=== PATIENT | female | born 1990 | race Caucasian/White ===

== ENCOUNTER 2017-08-13 14:40 | Outpatient (CLI) | payer MEDICAID, SELFPAY ==
[2017-08-13 14:53] VITALS: BMI 41.1
--- NOTE | 2017-08-14 08:38 | OB.TRI.NOTE ---
History of Present Illness Date of Service: 08/13/17 Was patient seen by the physician?: Yes Reason For Visit: NST Date of Service: 08/13/17 Final MARILY: 10/14/17 Final MARILY Source: US <20 weeks Gestational age: 31 Weeks and 2 Days Home Medications Medication Instructions Recorded RX: Ferrous Gluconate 325 mg PO BIDCM 08/13/17 RX: Vits [Prenatabs FA 1 tablet PO DAILY 08/13/17 ] Allergies succinylcholine Allergy (Verified 08/13/17 14:54) Unknown Physical Exam General: Alert, Oriented x3, Cooperative, No apparent distress Cardiovascular: Regular rate, Regular Rhythm Lungs: Clear to auscultation, Normal air movement Abdomen: Soft, Non Tender, Non-Distended, Gravid, - - LGA Twins Extremities:: No edema Estimated gestational size: Large for gestational age - Twin Presentation: Unable to assess NST - FHR Rate Baby A Baseline: 140s Variability:: Moderate Accelerations:: 15 x 15 Decelerations:: None NST Reactive:: Yes, Appropriate for gestational age FHR Category:: Category I Uterine Activity:: rare - FHR Rate Baby B Baseline: 130s Variability:: Moderate Accelerations:: 15 x 15 Decelerations:: None NST Reactive:: Yes FHR Category:: Category I Uterine Activity:: rare Impression/Plan Reassuring Cat 1 FHR tracings for twins.
== END 2017-08-13 15:30 | disposition home or self-care (01) ==
LOC: WPOUT 14:51 → WP 14:52
PROVIDERS: Visit Provider Obstetrics & Gynecology
DX: O30.003 Twin pregnancy, unspecified number of placenta and unspecified number of amniotic sacs, third trimester (principal); Z3A.31 31 weeks gestation of pregnancy
CPT/HCPCS: 59025; 59050; 99218; G0378

== ENCOUNTER 2017-08-17 12:50 | Outpatient (CLI) | payer MEDICAID, SELFPAY ==
[2017-08-17 13:34] VITALS: BMI 40.4
--- NOTE | 2017-08-17 19:16 | OB.TRI.NOTE ---
History of Present Illness Date of Service: 08/17/17 Was patient seen by the physician?: No Reason For Visit: NST Date of Service: 08/17/17 Final MARILY: 10/14/17 Final MARILY Source: US <20 weeks Gestational age: 31 Weeks and 5 Days Home Medications Medication Instructions Recorded Ferrous Gluconate 325 mg PO BIDCM 08/13/17 Vits [Prenatabs FA ] 1 tablet PO DAILY 08/13/17 Allergies succinylcholine Allergy (Verified 08/13/17 14:54) Unknown NST - FHR Rate Baby A Baseline: 140 Variability:: Moderate Accelerations:: 15 x 15 Decelerations:: None NST Reactive:: Yes FHR Category:: Category I Uterine Activity:: 0/10 - FHR Rate Baby B Baseline: 150 Accelerations:: 10 x 10 Decelerations:: None NST Reactive:: Yes FHR Category:: Category I Uterine Activity:: 0/10 Impression/Plan 26yo @ 31 5/7wga with dichorionic diamnionic twin gestation for scheduled NST. -NSTs reactive, AGA -d/c home -f/u as scheduled
== END 2017-08-17 13:40 | disposition home or self-care (01) ==
LOC: WPOUT 13:03 → WP 13:06
PROVIDERS: Visit Provider Obstetrics & Gynecology
DX: O30.043 Twin pregnancy, dichorionic/diamniotic, third trimester (principal); Z3A.31 31 weeks gestation of pregnancy
CPT/HCPCS: 59025; 59050; 99218; G0378

== ENCOUNTER 2017-08-20 14:20 | Outpatient (CLI) | payer MEDICAID, SELFPAY ==
[2017-08-20 15:14] VITALS: BMI 40.7
--- NOTE | 2017-08-26 07:07 | OB.TRI.NOTE ---
History of Present Illness Date of Service: 08/20/17 Reason For Visit: NST Date of Service: 08/20/17 Final MARILY: 10/14/17 Gestational age: 33 Weeks and 0 Days History of Present Illness: 33 week intrauterine with twin gestation. Presents for nonstress test. Home Medications Medication Instructions Recorded Ferrous Gluconate 325 mg PO BIDCM 08/13/17 Vits [Prenatabs FA ] 1 tablet PO DAILY 08/13/17 Allergies succinylcholine Allergy (Verified 08/13/17 14:54) Unknown NST - FHR Rate Baby A NST Reactive:: Yes - FHR Rate Baby B NST Reactive:: Yes Impression/Plan 33 week intrauterine with twin gestation for nonstress test. Reactive ?2. Released to home and continue with routine follow-up.
== END 2017-08-20 15:43 | disposition home or self-care (01) ==
LOC: WPOUT 14:39 → WP 14:40
PROVIDERS: Visit Provider Obstetrics & Gynecology
DX: O30.003 Twin pregnancy, unspecified number of placenta and unspecified number of amniotic sacs, third trimester (principal); Z3A.33 33 weeks gestation of pregnancy
CPT/HCPCS: 59025; 59050; 99218; G0378

== ENCOUNTER 2017-08-24 14:20 | Outpatient (CLI) | payer MEDICAID, SELFPAY ==
[2017-08-24 14:42] VITALS: BMI 41.2
--- NOTE | 2017-08-26 07:10 | OB.TRI.NOTE ---
History of Present Illness Date of Service: 08/24/17 Was patient seen by the physician?: No Reason For Visit: NST Date of Service: 08/24/17 Final MARILY: 10/14/17 Final MARILY Source: US <20 weeks Gestational age: 33 Weeks and 0 Days History of Present Illness: 33 week intrauterine presents for nonstress test for twin gestation. Home Medications Medication Instructions Recorded Ferrous Gluconate 325 mg PO BIDCM 08/13/17 Vits [Prenatabs FA ] 1 tablet PO DAILY 08/13/17 Allergies succinylcholine Allergy (Verified 08/13/17 14:54) Unknown NST - FHR Rate Baby B NST Reactive:: Yes Impression/Plan 33+ week intrauterine twin gestation presents for nonstress test. Reactive nonstress test ?2. Will release to home with routine follow-up.
== END 2017-08-24 15:00 | disposition home or self-care (01) ==
LOC: WPOUT 14:29 → WP 14:29
PROVIDERS: Visit Provider Obstetrics & Gynecology
DX: O30.003 Twin pregnancy, unspecified number of placenta and unspecified number of amniotic sacs, third trimester (principal); Z3A.33 33 weeks gestation of pregnancy
CPT/HCPCS: 59025; 59050; 99218; G0378

== ENCOUNTER 2017-08-26 14:30 | Outpatient (CLI) | payer MEDICAID, SELFPAY ==
[2017-08-26 15:01] VITALS: BMI 41.1
--- NOTE | 2017-08-27 08:24 | OB.TRI.NOTE ---
History of Present Illness Date of Service: 08/26/17 Was patient seen by the physician?: No Reason For Visit: NST Date of Service: 08/26/17 Final MARILY: 10/14/17 Gestational age: 33 Weeks and 1 Days History of Present Illness: 26 yo female with twin IUP at 33 wk here for scheduled twin NST. H/O two prior vaginal deliveries. Home Medications Medication Instructions Recorded Ferrous Gluconate 325 mg PO BIDCM 08/13/17 Vits [Prenatabs FA ] 1 tablet PO DAILY 08/13/17 Allergies succinylcholine Allergy (Verified 08/13/17 14:54) Unknown NST - FHR Rate Baby A Baseline: 140-150s with accels to 180s. Intermittent tracing noted Variability:: Moderate Accelerations:: 15 x 15 Decelerations:: None NST Reactive:: Yes, Appropriate for gestational age FHR Category:: Category I - FHR Rate Baby B Baseline: 130-140s with accels to 160s. Variability:: Moderate Accelerations:: 15 x 15 Decelerations:: None NST Reactive:: Yes, Appropriate for gestational age FHR Category:: Category I Uterine Activity:: Rare UC with uterine irritability. Impression/Plan TWIN IUP 33 + wks. Reactive NST Continue NSTs and office visits, growth sonos as planned.
== END 2017-08-26 15:40 | disposition home or self-care (01) ==
LOC: WPOUT 14:37 → WP 14:38
PROVIDERS: Visit Provider Obstetrics & Gynecology
DX: O30.003 Twin pregnancy, unspecified number of placenta and unspecified number of amniotic sacs, third trimester (principal); Z3A.33 33 weeks gestation of pregnancy
CPT/HCPCS: 59025

== ENCOUNTER 2017-08-30 15:04 | Outpatient (CLI) | payer MEDICAID, SELFPAY ==
[2017-08-30 15:16] VITALS: BMI 41.6
--- NOTE | 2017-08-31 20:29 | OB.TRI.NOTE ---
History of Present Illness Date of Service: 08/30/17 Was patient seen by the physician?: No Reason For Visit: NST Date of Service: 08/30/17 Final MARILY: 10/14/17 Final MARILY Source: US <20 weeks Gestational age: 33 Weeks and 4 Days History of Present Illness: 33 week 5 day gestation with twins presents for routine nonstress test. Home Medications Medication Instructions Recorded Ferrous Gluconate 325 mg PO BIDCM 08/13/17 Vits [Prenatabs FA ] 1 tablet PO DAILY 08/13/17 Allergies succinylcholine Allergy (Verified 08/13/17 14:54) Unknown NST - FHR Rate Baby A NST Reactive:: Yes - FHR Rate Baby B NST Reactive:: Non-Reactive - However, then nonstress test was reassuring. Unable to keep baby on the monitor and audibly the baby was reactive. Impression/Plan 33 week 4 day gestation twin with reactive and reassuring nonstress tests. Continuing twice weekly nonstress test. Routine follow-up otherwise.
== END 2017-08-30 16:45 | disposition home or self-care (01) ==
LOC: WPOUT 15:06 → WP 15:07
PROVIDERS: Visit Provider Obstetrics & Gynecology
DX: O30.003 Twin pregnancy, unspecified number of placenta and unspecified number of amniotic sacs, third trimester (principal); Z3A.33 33 weeks gestation of pregnancy
CPT/HCPCS: 59025

== ENCOUNTER 2017-09-02 11:00 | Outpatient (CLI) | payer MEDICAID, SELFPAY ==
[2017-09-02 11:33] VITALS: BMI 41.3
--- NOTE | 2017-09-04 17:10 | OB.TRI.NOTE ---
History of Present Illness Date of Service: 09/02/17 Was patient seen by the physician?: Yes Reason For Visit: NON STRESS FOR TWINS Date of Service: 09/02/17 Final MARILY: 10/14/17 Final MARILY Source: US <20 weeks Gestational age: 34 Weeks History of Present Illness: 26 yo female at 34 wk with TWIN IUP for scheduled NST, twins SONO showed last position in ofc as VTX, transverse. Denies pain, UCs. + FM Home Medications Medication Instructions Recorded Ferrous Gluconate 325 mg PO BIDCM 08/13/17 Vits [Prenatabs FA ] 1 tablet PO DAILY 08/13/17 Allergies succinylcholine Allergy (Verified 08/13/17 14:54) Unknown NST - FHR Rate Baby A Variability:: Moderate Accelerations:: 10 x 10 Decelerations:: None NST Reactive:: Yes, Appropriate for gestational age FHR Category:: Category I - FHR Rate Baby B Variability:: Moderate Accelerations:: 10 x 10 Decelerations:: None NST Reactive:: Yes, Appropriate for gestational age FHR Category:: Category I - irreg UCs only Impression/Plan 34 wk twin IUP reactive NST F/U in ofc as planned. NSTs as planned until delivery
== END 2017-09-02 12:30 | disposition home or self-care (01) ==
LOC: WPOUT 11:14 → WP 11:14
PROVIDERS: Visit Provider Obstetrics & Gynecology
DX: O30.003 Twin pregnancy, unspecified number of placenta and unspecified number of amniotic sacs, third trimester (principal); Z3A.34 34 weeks gestation of pregnancy

== ENCOUNTER 2017-09-05 10:50 | Outpatient (CLI) | payer MEDICAID, SELFPAY ==
[2017-09-05 11:31] VITALS: BMI 41.1
--- NOTE | 2017-09-07 08:15 | OB.TRI.NOTE ---
History of Present Illness Date of Service: 09/05/17 Was patient seen by the physician?: No Reason For Visit: NST Date of Service: 09/05/17 Final MARILY: 10/14/17 Final MARILY Source: US <20 weeks Gestational age: 34 Weeks and 5 Days History of Present Illness: 26yo with dichorionic diamnionic twin gestation presents for scheduled NST. Home Medications Medication Instructions Recorded Ferrous Gluconate 325 mg PO BIDCM 08/13/17 Vits [Prenatabs FA ] 1 tablet PO DAILY 08/13/17 Allergies succinylcholine Allergy (Verified 08/13/17 14:54) Unknown NST - FHR Rate Baby A Baseline: 145 Variability:: Moderate Accelerations:: 15 x 15 Decelerations:: None NST Reactive:: Yes FHR Category:: Category I Uterine Activity:: 0/10 - FHR Rate Baby B Baseline: 150 Variability:: Moderate Accelerations:: 15 x 15 Decelerations:: None NST Reactive:: Yes FHR Category:: Category I Uterine Activity:: 0/10 Impression/Plan 26yo -Encounter for supervision of dichorionic diamnionic gestation, third trimester -Reactive NST x 2, d/c home
== END 2017-09-05 12:27 | disposition home or self-care (01) ==
LOC: WPOUT 10:55 → WP 10:57
PROVIDERS: Visit Provider Obstetrics & Gynecology
DX: O30.043 Twin pregnancy, dichorionic/diamniotic, third trimester (principal); Z3A.34 34 weeks gestation of pregnancy
CPT/HCPCS: 59025; 59050; 99218; G0378

== ENCOUNTER 2017-09-08 12:55 | Outpatient (CLI) | payer MEDICAID, SELFPAY ==
[2017-09-08 13:12] VITALS: BMI 41.2
--- NOTE | 2017-09-09 09:58 | OB.TRI.NOTE ---
History of Present Illness Date of Service: 09/08/17 Was patient seen by the physician?: No Reason For Visit: NST Date of Service: 09/08/17 Final MARILY: 10/14/17 Final MARILY Source: US <20 weeks Gestational age: 35 Weeks and 0 Days Home Medications Medication Instructions Recorded Ferrous Gluconate 325 mg PO BIDCM 08/13/17 Vits [Prenatabs FA ] 1 tablet PO DAILY 08/13/17 Allergies succinylcholine Allergy (Verified 08/13/17 14:54) Unknown Physical Exam General: Alert, Oriented x3, Cooperative, No apparent distress Cardiovascular: Regular rate, Regular Rhythm Abdomen: Soft, Non Tender, Non-Distended, Gravid, Appropriate for Gestational Age Extremities:: No edema Estimated gestational size: Large for gestational age NST - FHR Rate Baby A Baseline: 140 Variability:: Moderate Accelerations:: 15 x 15 Decelerations:: None NST Reactive:: Yes, Appropriate for gestational age FHR Category:: Category I - FHR Rate Baby B Baseline: 140 Variability:: Moderate Accelerations:: 15 x 15 Decelerations:: None NST Reactive:: Yes, Appropriate for gestational age FHR Category:: Category I Impression/Plan Category 1 tracing for both twin A and B.
== END 2017-09-08 13:45 | disposition home or self-care (01) ==
LOC: WPOUT 12:56 → WP 12:59
PROVIDERS: Visit Provider Obstetrics & Gynecology
DX: O30.003 Twin pregnancy, unspecified number of placenta and unspecified number of amniotic sacs, third trimester (principal); Z3A.35 35 weeks gestation of pregnancy
CPT/HCPCS: 59025

== ENCOUNTER → 2017-09-10 18:48 | Outpatient (CLI) | payer MEDICAID, SELFPAY ==
[2017-09-10 20:43] LABS: Group B Strep DNA By PCR Negative (Negative); Internal Control PASS; Probe Check PASS; Specimen Processing Control PASS
== END ==
PROVIDERS: Visit Provider Obstetrics & Gynecology
DX: Z36.85 Encounter for antenatal screening for Streptococcus B (principal)
CPT/HCPCS: 87081; 87653

== ENCOUNTER 2017-09-12 10:05 | Outpatient (CLI) | payer MEDICAID, SELFPAY ==
[2017-09-12 10:17] VITALS: BMI 41.5
--- NOTE | 2017-09-13 08:19 | OB.TRI.NOTE ---
History of Present Illness Date of Service: 09/12/17 Was patient seen by the physician?: No Reason For Visit: NST Date of Service: 09/12/17 Final MARILY: 10/14/17 Final MARILY Source: US <20 weeks Gestational age: 35 Weeks and 4 Days Home Medications Medication Instructions Recorded RX: Ferrous Gluconate 325 mg PO BIDCM 08/13/17 RX: Vits [Prenatabs FA 1 tablet PO DAILY 08/13/17 ] Allergies succinylcholine Allergy (Verified 09/12/17 10:46) Unknown - Pertinent Past Medical History Pertinent Past Medical History: Twin uncomplicated. Physical Exam General: Alert, Oriented x3, Cooperative, No apparent distress Cardiovascular: Regular rate, Regular Rhythm Lungs: Clear to auscultation, Normal air movement Abdomen: Soft, Non Tender, Non-Distended, Gravid, - - Large for gestational age due to twin gestation Extremities:: No edema Estimated gestational size: Large for gestational age NST - FHR Rate Baby A Baseline: 140s Variability:: Moderate Accelerations:: 15 x 15 Decelerations:: None NST Reactive:: Yes, Appropriate for gestational age FHR Category:: Category I Uterine Activity:: rare contractions - FHR Rate Baby B Baseline: 130s Variability:: Moderate Accelerations:: 10 x 10 Decelerations:: None NST Reactive:: Yes, Appropriate for gestational age FHR Category:: Category I Impression/Plan Reassuring twin NSTs. F/U as scheduled.
== END 2017-09-12 11:30 | disposition home or self-care (01) ==
LOC: WPOUT 10:13 → WP 10:14
PROVIDERS: Visit Provider Obstetrics & Gynecology
DX: O30.003 Twin pregnancy, unspecified number of placenta and unspecified number of amniotic sacs, third trimester (principal); Z3A.35 35 weeks gestation of pregnancy
CPT/HCPCS: 59025; 59050; 99218; G0378

== ENCOUNTER 2017-09-17 11:25 | Outpatient (CLI) | payer MEDICAID, SELFPAY ==
[2017-09-17 11:34] VITALS: BMI 41.8
--- NOTE | 2017-09-23 09:56 | OB.TRI.NOTE ---
History of Present Illness Date of Service: 09/17/17 Was patient seen by the physician?: No Reason For Visit: NST Date of Service: 09/17/17 Final MARILY: 10/14/17 Final MARILY Source: US <20 weeks Gestational age: 37 Weeks and 0 Days Home Medications Medication Instructions Recorded Ferrous Gluconate 325 mg PO BIDCM 08/13/17 Vits [Prenatabs FA ] 1 tablet PO DAILY 08/13/17 Allergies succinylcholine Allergy (Verified 09/17/17 11:36) Unknown from childhood Physical Exam General: Alert, Oriented x3, Cooperative, No apparent distress Cardiovascular: Regular rate, Regular Rhythm Lungs: Clear to auscultation, Normal air movement Abdomen: Soft, Non Tender, Non-Distended, Gravid Extremities:: No edema Estimated gestational size: Large for gestational age Presentation: Cephalic NST - FHR Rate Baby A Baseline: 140s Variability:: Moderate Accelerations:: 15 x 15 Decelerations:: None NST Reactive:: Yes, Appropriate for gestational age FHR Category:: Category I Uterine Activity:: rare contraction - FHR Rate Baby B Baseline: 130s Variability:: Moderate Accelerations:: 15 x 15 Decelerations:: None NST Reactive:: Yes, Appropriate for gestational age FHR Category:: Category I Uterine Activity:: rare Impression/Plan Reassuring CAT 1 FHR pattern x 2. Will followup in office for BPP and growth scan.
== END 2017-09-17 12:00 | disposition home or self-care (01) ==
LOC: WPOUT 11:31 → WP 11:32
PROVIDERS: Visit Provider Obstetrics & Gynecology
DX: O30.003 Twin pregnancy, unspecified number of placenta and unspecified number of amniotic sacs, third trimester (principal); Z3A.37 37 weeks gestation of pregnancy
CPT/HCPCS: 59025

== ENCOUNTER 2017-09-19 09:00 | Outpatient (CLI) | payer MEDICAID, SELFPAY ==
[2017-09-19 09:30] VITALS: BMI 39.5
--- NOTE | 2017-09-21 08:18 | OB.TRI.NOTE ---
History of Present Illness Date of Service: 09/19/17 Was patient seen by the physician?: Yes Reason For Visit: MATERNITY Date of Service: 09/19/17 Final MARILY Source: US <20 weeks History of Present Illness: twin IUP for NST Planning induction at 37 wks Home Medications Medication Instructions Recorded Ferrous Gluconate 325 mg PO BIDCM 08/13/17 Vits [Prenatabs FA ] 1 tablet PO DAILY 08/13/17 Allergies succinylcholine Allergy (Verified 09/17/17 11:36) Unknown from childhood NST - FHR Rate Baby A Baseline: 130-140s avg accels to 150s Variability:: Moderate Accelerations:: 10 x 10 Decelerations:: None NST Reactive:: Yes FHR Category:: Category I Uterine Activity:: irritability. with irregular UCs - FHR Rate Baby B Baseline: 140-150s with accels to 160s Variability:: Moderate Accelerations:: 10 x 10 Decelerations:: None NST Reactive:: Yes FHR Category:: Category I Impression/Plan Twin IUP for NST No regular UCs. NST reassuring both Planning induction at 37 wk
== END 2017-09-19 09:39 | disposition home or self-care (01) ==
LOC: WPOUT 09:13 → WP 09:22
PROVIDERS: Visit Provider Obstetrics & Gynecology
DX: O30.009 Twin pregnancy, unspecified number of placenta and unspecified number of amniotic sacs, unspecified trimester (principal); Z3A.00 Weeks of gestation of pregnancy not specified
CPT/HCPCS: 59025

== ENCOUNTER 2017-09-26 09:05 | Outpatient (CLI) | payer MEDICAID, SELFPAY ==
[2017-09-26 10:13] VITALS: BMI 42.1
--- NOTE | 2017-09-26 21:07 | OB.TRI.NOTE ---
History of Present Illness Date of Service: 09/26/17 Was patient seen by the physician?: No Reason For Visit: NST Date of Service: 09/26/17 Final MARILY: 10/14/17 Final MARILY Source: US <20 weeks Gestational age: 37 Weeks and 3 Days History of Present Illness: 37+ week intrauterine with twin gestation presents for routine nonstress test. Other than twins, care was only remarkable for the patient being a smoker. Home Medications Medication Instructions Recorded Ferrous Gluconate 325 mg PO BIDCM 08/13/17 Vits [Prenatabs FA ] 1 tablet PO DAILY 08/13/17 Allergies succinylcholine Allergy (Verified 09/17/17 11:36) Unknown from childhood NST - FHR Rate Baby A NST Reactive:: Yes - FHR Rate Baby B NST Reactive:: Yes Impression/Plan 37+ week twin intrauterine with reactive nonstress tests. Induction is planned for this coming week. Otherwise follow-up per routine.
== END 2017-09-26 10:25 | disposition home or self-care (01) ==
LOC: WPOUT 09:07 → WP 09:08
PROVIDERS: Visit Provider Obstetrics & Gynecology
DX: O30.003 Twin pregnancy, unspecified number of placenta and unspecified number of amniotic sacs, third trimester (principal); O99.333 Smoking (tobacco) complicating pregnancy, third trimester; Z3A.37 37 weeks gestation of pregnancy
CPT/HCPCS: 59025; 59050; 99218; G0378

== ENCOUNTER 2017-09-29 07:11 | Inpatient (IN) | payer MEDICAID, SELFPAY ==
[2017-09-29 07:26] VITALS: BMI 41.6
[2017-09-29] MEDS: Lactated Ringers 1,000 ML 50 ML IV ×2 (07:45→09:29)
[2017-09-29 08:10] LABS: Hematocrit 34.3 % (37-47); Hemoglobin 10.8 g/dl (12.0-15.0); Mean Corp Hgb Conc 31.5 g/gl (32-36); Mean Corpuscular Hgb 27.8 pg (27.0-32.0); Mean Corpuscular Volume 88.4 fL (81-99); Mean Platelet Vol. 9.2 fl (6.2-12.0); Platelet Count 167 K/mm3 (150-450); RBC Distribution Width SD 45.3 fl (35.1-43.9); Red Blood Count 3.88 M/mm3 (4.2-5.4); White Blood Count 8.1 K/mm3 (4.4-11.0)
[2017-09-29 08:11] LABS: Scan Indicated on CBC? Y/N NO
[2017-09-29] MEDS: fentaNYL-bupivacaine (epidural) 100 ML BAG EPIDURAL (09:27)
--- NOTE | 2017-09-29 10:30 | PLAC_PTH ---
PATIENT: CHAITANYA COLLINS LOC: [facility] U#:[id number] AGE/SX: 26/F ROOM: WP007 RE09/29/[address]: Dr. Wayne Mohan MD : 1990 BED: 1 DIS: 10/01/2017 SPEC #: [id number] RECD: 09/29/17 19:20 STATUS: FILEMON RERylan #: [id number] KEITH: 09/29/17 10:[address]: Wayne Mohan DEPT: SURGICAL PATHOLOGY RECD BY: Ramiro Chadwick ENTERED: 09/30/17 08:06 SP TYPE: PLACENTA OTHR DR: No Primary Care Phys Tissues: Placenta, NOS Procedures: Surgery Specimen Level V HEADER OPERATION: Vaginal delivery PRE-OP DIAGNOSIS: Twins di/di TISSUE SUBMITTED: Placenta MICROSCOPIC DIAGNOSIS Twin placenta: Dichorionic and diamniotic twin placenta, single placental disc (882 gm). Placenta A: Placental disc - third trimester placenta with focal area of intraparenchymal hemorrhage and plaque surface (2.2 to 3 cm in greatest dimension). Membranes - no pathologic diagnosis. Umbilical cord - three blood vessels and no pathologic diagnosis. Placenta B: Placental disc - third trimester placenta, no pathologic diagnosis. Membranes - no pathologic diagnosis. Umbilical cord - three blood vessels and no pathologic diagnosis. SJ:wyatt 10/02/17 MICROSCOPIC DESCRIPTION Slides are reviewed. GROSS DESCRIPTION SPECIMEN: TWIN PLACENTA / CLINICAL INFORMATION: A. Weight: A ? 3.356 kg; B ? 2.725 kg B. Gestational Age: 37 weeks C. Sex: A ? Female, B - Male The specimen consists of a single placental disc with a dividing membrane, peripheral membranes and two umbilical cords. Physical manipulation of the dividing membrane reveals three separate membranes. PLACENTAL WEIGHT (POST FIXATION): 882 gm PLACENTAL DIMENSIONS: 28 x 20 x 3 cm PLACENTAL SHAPE: Usual ovoid PLACENTAL WEIGHT FOR GESTATIONAL AGE: Within 10-99th percentile PLACENTA A: (Umbilical cord with clamp) MEMBRANES - Present A. Insertion: Marginal B. Site of rupture from edge: At edge of placental disc C. Color of membrane: Shay-escalante D. Abnormalities: None UMBILICAL CORD - Present A. Color: Shay-escalante B. Insertion: Eccentric C. Length: 35 cm D. Diameter: 1.4 cm E. Number of vessels: Three F. Abnormalities: None PLACENTA B: MEMBRANES - Present A. Insertion: Marginal B. Site of rupture from edge: At edge of placental disc C. Color of membrane: Shay-escalante D. Abnormalities: None UMBILICAL CORD - Present A. Color: Shay-escalante B. Insertion: Eccentric C. Length: 43 cm D. Diameter: 1.5 cm E. Number of vessels: Three F. Abnormalities: Displays minimal spiraling PLACENTAL DISC - Present A. Color of surface: Shay-escalante B. surface abnormalities: None C. Maternal cotyledons: Intact with minimal tears D. Attached retro placental clot: No clot E. Cut surface: Dark red and spongy F. Lesions: Serial sections of placental disc on side A reveals two plaque-like lesions that are shay-yellow in color ranging in size from 2.2 to 3 cm in greatest dimension. Serial sections of placental disc from side B does not reveal mass lesions. G. Separate clot: Absent SECTIONS SUBMITTED: 10 cassettes 1 ? Peripheral membranes and umbilical cord with clamp (side A) 2 ? Dividing membrane 3 ? Peripheral membranes and umbilical cord from side B 4 & 5 ? Placental disc side A with lesions (larger lesion in cassette 5) 6 & 7 ? additional sections of placental disc side A 8-10 ? solar sales representative sections of placental disc from side B AM:wyatt 10/01/17 TC:5 CPT: 21137 x2
[2017-09-29] MEDS: Oxytocin 30 units/NS 500 ml 30 UNITS/500 ML IV.SOLN 167 UNITS IV (10:31)
[2017-09-29] MEDS: Oxytocin 30 units/NS 500 ml 30 UNITS/500 ML IV.SOLN 334 UNITS IV (10:31)
[2017-09-29] MEDS: Methylergonovine 0.2 MG/ML Ampul IM ×2 (11:32→12:07)
[2017-09-29] MEDS: miSOPROStol 200 MCG Tablet 800 MCG RECTAL (12:30)
[2017-09-29 12:37] LABS: Absolute Lymphocyte Count 1.01 X10^3/ul (0.83-4.51); Absolute Neutrophil Count 11.7 X10^3/uL (2.0-7.7); Basophil# 0.01 X10^3/uL; Basophil% 0.1 % (0-1); Eosinophil# 0.01 X10^3/uL; Eosinophils% 0.1 % (0-5); Hematocrit 32.5 % (37-47); Hemoglobin 10.3 g/dl (12.0-15.0); Lymphocyte # 1.01 X10^3/ul (4.0); Lymphocyte % 7.4 % (19-41); Mean Corp Hgb Conc 31.7 g/gl (32-36); Mean Corpuscular Hgb 28.1 pg (27.0-32.0); Mean Corpuscular Volume 88.8 fL (81-99); Mean Platelet Vol. 9.2 fl (6.2-12.0); Monocyte# 0.84 X10^3/uL; Monocyte% 6.2 % (0-10); Neutrophil # 11.67 X10^3/uL (2.7-7.7); Neutrophil % 85.9 % (47-70); Platelet Count 152 K/mm3 (150-450); RBC Distribution Width CV 13.8 % (11.6-14.6); RBC Distribution Width SD 44.9 fl (35.1-43.9); Red Blood Count 3.66 M/mm3 (4.2-5.4); White Blood Count 13.6 K/mm3 (4.4-11.0)
[2017-09-29 12:41] LABS: POSITIVE COUNT NO; POSITIVE DIFFERENTIAL NO; POSITIVE MORPHOLOGY NO
[2017-09-29 12:44] LABS: Prothrombin Time (Protime)PT. 12.9 SECONDS (11.7-14.9)
[2017-09-29 12:45] LABS: Fibrinogen 304 mg/dl (203-444)
[2017-09-29] MEDS: Ibuprofen 600 MG Tablet PO (14:39)
[2017-09-29 14:43] VITALS: BP 135/63; PULSE 111; RESP 16; TEMP 37.9
[2017-09-29] MEDS: Acetaminophen 500 MG Tablet 1000 MG PO (16:28)
[2017-09-29 16:29] VITALS: BP 128/74; PULSE 106; RESP 18; TEMP 36.6; O2SAT 97
[2017-09-29] MEDS: Ferrous Gluconate 325 MG Tablet PO (17:43)
[2017-09-29] MEDS: oxyCODONE 5 MG Tablet PO (20:08)
[2017-09-29 20:37] VITALS: BP 103/54; PULSE 91; RESP 18; TEMP 36.3
[2017-09-29 23:23] VITALS: BP 106/59; PULSE 91; RESP 18; TEMP 36.6
[2017-09-29] MEDS: 0.9% Saline Lock 10 ML Syringe IV (23:31)
[2017-09-30 04:10] VITALS: BP 91/43; PULSE 80; RESP 16; TEMP 36.3
--- NOTE | 2017-09-30 04:11 | NURSING ---
Small, hardened area just below umbilicus. pt states this area is sore when palpated.
[2017-09-30] MEDS: Acetaminophen 500 MG Tablet 1000 MG PO ×2 (04:21→13:43)
[2017-09-30 04:25] LABS: Hematocrit 27.7 % (37-47); Mean Corp Hgb Conc 32.5 g/gl (32-36); Mean Corpuscular Hgb 28.8 pg (27.0-32.0); Mean Corpuscular Volume 88.8 fL (81-99); Mean Platelet Vol. 8.8 fl (6.2-12.0); Platelet Count 156 K/mm3 (150-450); RBC Distribution Width CV 13.6 % (11.6-14.6); RBC Distribution Width SD 41.9 fl (35.1-43.9); Red Blood Count 3.12 M/mm3 (4.2-5.4); White Blood Count 9.7 K/mm3 (4.4-11.0)
[2017-09-30 04:26] LABS: Scan Indicated on CBC? Y/N NO
--- NOTE | 2017-09-30 08:16 | PCM.OB.VAG ---
- Problem List (1) Twin Status: Acute Vaginal Delivery Maternal Presentation: Medically Indicated Induction 37w6d ega admitted for induction of labor with twins. Method of Induction: Pitocin Medical Reason for Induction: Maternal Medical Condition: list: - twin gestation Amniotic Membrane Rupture Type: Artificial Rupture of Membrane time: 0800 Amniotic Fluid Description: Clear Final MARILY: 10/14/17 Final MARILY Source: US <20 weeks Gestational age: 38 Weeks and 0 Days [place] doctor who attended delivery (if requested by OB): Susan Cee Date of Procedure: 09/29/17 Pre-Operative Diagnosis: Twins Post-Operative Diagnosis: same Surgery/ Procedure Performed: Spontaneous Vaginal Delivery, - - Breech extraction of second twin Anesthesiologist: Alli Rocha Type of Anesthesia: Epidural Description of Procedure: Courtney progressed rapidly to FD then pushed for two contractions to deliver Baby A from vertex presentation. At delivery the mouth and nares were suctioned. There was an active cry shortly after delivery. Deolayed cord clamping was employed. After the cord was clamped and cut exam revbealed the second twin to be in hand presentation. Internal podalic version was performed and Baby B was delivered by footling breech extraction. Again the mouth and nares were suctioned. Delayed cord clamping was employed. There was an active cry shortly after delivery. The cord was clmaped and cut. Both babies were then evaluated by Dr. Cee. The placenta was then delivered spontaneously intact. The uterus contracted well. She was given one dose of methergine IM at this point to help promote uterine contraction. Inspection revealed an intact perineum, vagina, and cervix. Presentation: Vertex Placental Delivery Description: Spontaneous Placenta Disposition: Sent to Pathology Percentage of Placenta Abruption: 0 Cord Vessel Description: 3 Vessels Nuchal Cord Compression: Without compression Cord Entanglement: None Estimated Blood Loss: 600cc Infant A gender: Female (1 minute): 8 (5 minute): 9 Episiotomy Description: None Laceration: None Medications given after delivery: IV Pitocin, IM Methergin Complications: None - Baby B delivered from footling breech presentation with apgars of 8/9
--- NOTE | 2017-09-30 08:28 | DCINST_ITS ---
Discharge Diet: No Restrictions Discharge Activity: Return to Normal Activity, May Drive, May Shower Return to work on:: 11/30/17 May shower in (days): 0 May resume sexual activity in: 4-6 weeks Call your doctor if your incision/area has: Sudden Increased Bleeding, Foul Smelling Discharge Call your doctor if you observe: Fever of 101 or Higher, Inability to urinate, Inability to have a bowel movement, Using more than one pad per hour, Shortness of breath, Chest pain, Calf discomfort, Uncontrolled pain Cleanse incision/area with: Soap & Water Additional Instructions: If you experience any of the following, contact your healthcare provider. * Bleeding that soaks a pad every hour for 2 hours * Fever 100.4 or higher * Unrelieved incision or abdominal pain * Swelling, redness, discharge or bleeding from your incision or episiotomy site * Your incision begins to separate * Problems urinating (including inability to urinate or burning while urinating) . * Visual changes * Severe headache * Flu-like symptoms * Pain or redness in one of both of your breasts * Pain, warmth, tenderness or swelling in your legs, especially the calf area * Frequent nausea and vomiting * Symptoms of depression or anxiety If you experience any of the following, call 911 or go to the nearest Emergency Room. * Chest pain * Problems breathing * Seizure activity * Partial or complete paralysis of a body part, slurred speech, weakness or drooping of the face, or a sudden inability to walk or hold your balance Allergies/Adverse Reactions: Allergies succinylcholine Allergy (Verified 09/17/17 11:36) Unknown from childhood Medications to take at Discharge Ferrous Gluconate 325 mg PO BIDCM 08/13/17 Vits [Prenatabs FA ] 1 tablet PO DAILY 08/13/17 Ibuprofen [Motrin] 800 mg PO TID PRN PRN #30 tab 09/30/17 The following prescriptions were given: Ibuprofen [Motrin] 800 mg PO TID PRN PRN #30 tab PRN Reason: cramping or pain Please Follow Up With: Wayne Mohan MD When: 6 weeks Primary Care Physician: Care Physician,No Primary [Primary Care Provider] - Proposed Discharge Date: 10/01/17
--- NOTE | 2017-09-30 08:30 | PN.OBGYN_ITS ---
Patient Problems: Active and Suspected Problems Twin (Acute) Subjective: Some back pain and cramping. Bleeding light. Objective: Afeb VSS. Hgb appropriate after delivery. - Physical Exam General: Alert, Oriented x3, Cooperative, No apparent distress Lungs: Clear to auscultation, Normal air movement Cardiovascular: Regular rate, Regular Rhythm Abdomen: Soft, Non Tender, Non-Distended, - - Fundus firm nontender Extremities: No edema, No Calf Tenderness Skin: No rashes Neurological: Neuro grossly intact Psych/Mental Status: Normal Affect Comment: Lochhia light Vital Signs Temp Pulse Resp BP Pulse Ox 97.4 F L 80 16 91/43 L 97 09/30/17 04:10 09/30/17 04:10 09/30/17 04:10 09/30/17 04:10 09/29/17 16:29 Oxygen Delivery Method Room Air Weight: 242 lb 8.136 oz Body Mass Index (BMI) 41.6 Intake and Output for Last 24 Hours 09/28/17 09/29/17 09/30/17 23:59 23:59 23:59 Output Total 500 / 500 200 / 200 Balance -500 / -500 -200 / -200 Laboratory Tests Past 24 Hrs 09/29/17 09/29/17 09/29/17 07:45 12:22 12:22 WBC 13.6 H RBC 3.66 L Hgb 10.3 L Hct 32.5 L MCV 88.8 MCH 28.1 MCHC 31.7 L RDW 13.8 RDW Differential 44.9 H Plt Count 152 MPV 9.2 Immature Gran % (Auto) 0.300 Neut % (Auto) 85.9 H Lymph % (Auto) 7.4 L [place] % (Auto) 6.2 Eos % (Auto) 0.1 Baso % (Auto) 0.1 Absolute Neuts (auto) 11.7 H Absolute Lymphs (auto) 1.01 Total Counted Not Reportable PT 12.9 INR 1.0 APTT 26.0 Fibrinogen 304 Blood Type A POSITIVE Antibody Screen NEGATIVE 09/30/17 04:15 WBC 9.7 RBC 3.12 L Hgb 9.0 L Hct 27.7 L MCV 88.8 MCH 28.8 MCHC 32.5 RDW 13.6 RDW Differential 41.9 Plt Count 156 MPV 8.8 Immature Gran % (Auto) Neut % (Auto) Lymph % (Auto) [place] % (Auto) Eos % (Auto) Baso % (Auto) Absolute Neuts (auto) Absolute Lymphs (auto) Total Counted PT INR APTT Fibrinogen Blood Type Antibody Screen Medical Necessity - Tobacco Use Smoking Status: Former smoker Assessment/Plan Active and Suspected Problems Twin (Acute) Doing well on PP day#1. Continue routine PP care.
[2017-09-30] MEDS: Ibuprofen 600 MG Tablet PO (09:16)
[2017-09-30] MEDS: Ferrous Gluconate 325 MG Tablet PO ×2 (09:17→17:37)
[2017-09-30 09:20] VITALS: BP 103/51; PULSE 92; RESP 24; TEMP 36.4; O2SAT 96
[2017-09-30] MEDS: Prenatal Vits Tablet 1 TABLET PO (13:43)
[2017-09-30 13:45] VITALS: BP 110/55; PULSE 84; TEMP 36.2; O2SAT 97
[2017-09-30 20:46] VITALS: BP 107/62; PULSE 90; RESP 18; TEMP 36.6
[2017-10-01] MEDS: Ibuprofen 600 MG Tablet PO ×2 (01:48→10:54)
[2017-10-01 01:49] VITALS: BP 100/51; PULSE 96; RESP 18; TEMP 36.6
--- NOTE | 2017-10-01 08:50 | PCM.PN.OB ---
Patient Problems: Active and Suspected Problems Twin (Acute) Subjective: No complaints. Breast and bottle feeding. Bleeding light. Objective: Afeb VSS - Physical Exam General: Alert, Oriented x3, Cooperative, No apparent distress Lungs: Clear to auscultation, Normal air movement Cardiovascular: Regular rate, Regular Rhythm Abdomen: Soft, Non Tender, Non-Distended, - - Fundus firm nontender Extremities: No edema Skin: No rashes Neurological: Neuro grossly intact Psych/Mental Status: Normal Affect Comment: Lochia scant Vital Signs Temp Pulse Resp BP Pulse Ox 97.8 F 96 18 100/51 L 97 10/01/17 01:49 10/01/17 01:49 10/01/17 01:49 10/01/17 01:49 09/30/17 13:45 Oxygen Delivery Method Room Air Weight: 242 lb 8.136 oz Body Mass Index (BMI) 41.6 Intake and Output for Last 24 Hours 09/29/17 09/30/17 10/01/17 23:59 23:59 23:59 Output Total 500 / 500 200 / 200 Balance -500 / -500 -200 / -200 Medical Necessity - Tobacco Use Smoking Status: Former smoker Assessment/Plan Active and Suspected Problems Twin (Acute) Doing well. Cleared for discharge home today. Home going instructions and warnings given.
--- NOTE | 2017-10-01 08:52 | PCM.DC.SUM ---
Discharge Date and Diagnosis - Problem List Patient Problems: Active and Suspected Problems Twin (Acute) Date of Admission: 09/29/17 Date of Discharge: 10/01/17 - Primary Discharge Diagnosis Active and Suspected Problems Twin (Acute) Hospital Course and Treatment Operations: None Procedures: - - Epidural, twin delivery with breech extraction of second twin Summary of Care Provided: The patient is a 26 year old F [admitted for induction of labor with twins. Induction resulting in vaginal delivery of twins. Uncomplicated post course. Discharged home on PP day#2.] Discharge Diet: No Restrictions Discharge Activity: Return to Normal Activity, May Drive, May Shower Return to work on:: 11/30/17 May shower in (days): 0 May resume sexual activity in: 4-6 weeks Call your doctor if your incision/area has: Sudden Increased Bleeding, Foul Smelling Discharge Call your doctor if you observe: Fever of 101 or Higher, Inability to urinate, Inability to have a bowel movement, Using more than one pad per hour, Shortness of breath, Chest pain, Calf discomfort, Uncontrolled pain Cleanse incision/area with: Soap & Water Home Medications: Medications to take at Discharge Ferrous Gluconate 325 mg PO BIDCM 08/13/17 Vits [Prenatabs FA ] 1 tablet PO DAILY 08/13/17 Ibuprofen [Motrin] 800 mg PO TID PRN PRN #30 tab 09/30/17 Following Prescrptions Were Given to Patient: Ibuprofen [Motrin] 800 mg PO TID PRN PRN #30 tab PRN Reason: cramping or pain Primary Care Physician: Care Physician,No Primary [Primary Care Provider] - Please Follow Up With: Wayne Mohan MD When: 6 weeks Disposition: Home Minutes spent on discharge:: 15 Patient Condition:: Good Medical Necessity - Tobacco Use Smoking Status: Former smoker Meaningful Use Info Meaningful Use Diagnoses (Choose all that apply): None applicable
[2017-10-01] MEDS: Ferrous Gluconate 325 MG Tablet PO (09:01)
[2017-10-01] MEDS: Acetaminophen 500 MG Tablet 1000 MG PO (09:04)
[2017-10-01 09:05] VITALS: BP 112/65; PULSE 96; RESP 20; TEMP 36.6; O2SAT 95
[2017-10-01] MEDS: Prenatal Vits Tablet 1 TABLET PO (13:14)
[2017-10-01 14:15] VITALS: BP 107/64; PULSE 94; TEMP 36.6; O2SAT 97
[2017-10-02 14:58] LABS: Pathology Specimen OB SEE PATHOLOGY REPORT
== END 2017-10-01 15:00 | disposition home or self-care (01) | DRG 373 ==
PROVIDERS: Admitting Provider Obstetrics & Gynecology; Visit Provider Obstetrics & Gynecology
DX: O32.8XX2 Maternal care for other malpresentation of fetus, fetus 2 (principal); Z37.2 Twins, both liveborn; O30.003 Twin pregnancy, unspecified number of placenta and unspecified number of amniotic sacs, third trimester; Z3A.37 37 weeks gestation of pregnancy; Z87.891 Personal history of nicotine dependence
CPT/HCPCS: 59025; 59050; 76815; 85025; 85027; 85384; 85610; 85730; 86850; 86900; 88307; 99218; J7030; J7120; A4216; G0378

== ENCOUNTER → 2017-11-20 11:50 | Outpatient (CLI) | payer MEDICAID, SELFPAY ==
[2017-11-20 15:03] LABS: Chlamydia Trachomatis by PCR Negative (Negative); Neisserai gonorrhoeae by PCR Negative (Negative)
[2017-11-20 15:04] LABS: Probe Check PASS; Sample Adequacy Control PASS; Specimen Processing Control PASS
== END ==
PROVIDERS: Visit Provider Obstetrics & Gynecology
DX: Z11.3 Encounter for screening for infections with a predominantly sexual mode of transmission (principal)
CPT/HCPCS: 87491; 87591

== ENCOUNTER 2019-03-12 18:31 | Emergency (ER) | payer OTHER, SELFPAY ==
[2019-03-12 18:33] VITALS: BP 155/96; PULSE 89; RESP 18; TEMP 36.1; O2SAT 100; BMI 37.8
--- NOTE | 2019-03-12 19:40 | RAD_ITS ---
STUDY: X-RAY - LEFT FOOT CLINICAL: Female, 28 years old. Injury. TECHNIQUE: 3 view(s) of the foot. COMPARISON: None. FINDINGS: No fracture or dislocation. Joint spaces are well-maintained. Moderate-sized plantar calcaneal spur. Bony structures are otherwise unremarkable. Soft tissues are unremarkable. RAD/Foot min 3 Views IMPRESSION: Heel spur, otherwise negative x-ray examination of the foot. Electronically Signed: Apolonia Lama MD at 20:08 EDT Tel , Service support ,
[2019-03-12 19:59] VITALS: RESP 16
--- NOTE | 2019-03-12 20:29 | ED.DEP ---
ED Disposition - Plan for ED Patient: Instructions: CONTUSION, Foot Prescriptions: Naproxen [Naprosyn] 500 mg PO BID PRN #20 tablet Referrals: [facility] [GROUP OF PHYSICIANS] -
--- NOTE | 2019-03-12 20:33 | ED.DCSUM_ITS ---
- ER Visit Summary Date of Service: 03/12/19 Chief Complaint: Left foot injury History of Present Illness: The patient is a 28 F presenting with left foot injury. 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 The child fell back onto her left foot. She has had painful ambulation since. She tried no medication prior to arrival. No other injuries. Physical Examination: Vitals are stable. Patient is afebrile. Alert no acute distress. HEENT exam is unremarkable. Neck is supple. Lungs are clear and equal bilaterally. Heart is regular rate and rhythm. Extremities left midfoot tenderness. No ankle tenderness. No 5th metatarsal tenderness. Skin is warm and dry. No focal neurologic deficit. Remainder of exam is unremarkable. Emergency Department Course and Treatment: Left foot x-ray shows no acute process. Patient is advised to ice and elevate. She is given a prescription for Naprosyn. She is given a postop shoe. She is advised to follow up with [facility]. Advised return to ED for worsening complaints. Disposition: Discharge home Impression: Left foot contusion This note was generated with [employer] dictation software. It may contain incorrect words, spelling, and punctuation that were not noted in review of the chart prior to signing ED Disposition - Plan for ED Patient: Instructions: CONTUSION, Foot Prescriptions: Naproxen [Naprosyn] 500 mg PO BID PRN #20 tab Prescription Printed [facility] -
[2019-03-12] MEDS: Naproxen 250 MG Tablet 500 MG PO (20:48)
[2019-03-12 20:54] VITALS: RESP 18
== END 2019-03-12 21:04 | disposition home or self-care (01) ==
LOC: ED 19:58
PROVIDERS: Emergency Provider Emergency Medicine
DX: S90.32XA Contusion of left foot, initial encounter (principal); Z72.0 Tobacco use; W50.0XXA Accidental hit or strike by another person, initial encounter; Y93.89 Activity, other specified; Y92.119 Unspecified place in children's home and orphanage as the place of occurrence of the external cause; Y99.8 Other external cause status
CPT/HCPCS: 73630; 99284